=== PATIENT | male | born 1990 | race African-American/Black ===

== ENCOUNTER 2024-10-15 16:42 | Emergency (ER) | payer SELFPAY ==
[~2024-10-15] VITALS: Ht 185.4 cm; Wt 82.0 kg
[2024-10-15 16:45] VITALS: O2SAT 98
[2024-10-15] MEDS ORDERED: HYDROCODONE/ACETAMINOPHEN 5/325MG TABLET PO ONE (17:45)
[2024-10-15] MEDS ORDERED: CYCL5TAB3 MT (19:33)
[2024-10-15] MEDS ORDERED: IBUP-2030 MT (19:33)
[2024-10-15 19:48] VITALS: BP 125/95; PULSE 75; RESP 18; TEMP 36.72516; O2SAT 100
[2024-10-15] MEDS: HYDROCODONE/ACETAMINOPHEN 5/325MG TABLET PO NR (19:48)
== END 2024-10-15 19:51 | disposition home or self-care (01) ==
LOC: ER 16:42
DX: M54.2 Cervicalgia (principal); M54.6 Pain in thoracic spine; Z04.3 Encounter for examination and observation following other accident; V43.52XA Car driver injured in collision with other type car in traffic accident, initial encounter; Y93.89 Activity, other specified; Y92.89 Other specified places as the place of occurrence of the external cause; Y99.8 Other external cause status
CPT/HCPCS: 72125; 72128; 99284; Z7610